=== PATIENT | female | born 1940 | race Caucasian/White ===

== ENCOUNTER → 2019-12-12 | Outpatient (CLI) | payer MEDICARE ==
[~2019-12-12] MED LIST: BENTYL 10 MG CA10 M1 PO; CALTRATE 600+D1 EAC1 PO; COUMADIN 4 MG TA4 M1 PO; IPRATROPIUM BRO30 ML NASAL; LACTULOSE10 GM/152 PO; LEVO-T25 MCG PO; LOMOTIL 2.5-0.01 TAB PO; METOPROLOL TART25 MG PO; MOBIC15 MG PO; NORVASC5 MG PO; NYSTATIN1 EA10 TOP; PANTOPRAZOLE SO40 MG PO; PEPCID COMPLET1 EACH PO; RECLAST 55 MG/100 M IV; TIZANIDINE HCL 22 M1 PO; TYLENOL EXTRA500 MG PO; VITAMIN D; ZESTRIL40 MG PO; ZOCOR 20 MG TAB20 M1 PO; ZYRTEC10 M4 PO
--- NOTE | ~2019-12-12 | PAINCON ---
[address] [address] PAIN MANAGEMENT CONSULTATION Name: ZAIRA MARQUES [facility] [id number] Admission: 12/12/19 Attend Phys: Oh Interiano MD Discharge: Date of : 36 Report #: [id number] THIS REPORT FOR: //name// cc: VIVIAN BARTH MD, HEATHER L. MD ~ THIS REPORT FOR: //name// CC: VIVIAN Interiano DATE OF SERVICE: 12/12/2019 CHIEF COMPLAINT: Neck pain. HISTORY: The patient is an 79-year-old female who has been having pain and discomfort in her neck. She has had problems, which have been quite problematic since 07/2019. She underwent a nerve block in the posterior portion of her neck. She thinks that it was a facet block in the back of her neck. She has got relatively good relief from the procedure. She was given a short to fill out. She states that for a number of days to week, she has had improvement in her neck. It has not gone back to the level that it was. She feels that she may have gotten lost to follow up by the pain clinics that provided the block. There were no complications from the procedure. She feels that maybe the clinic was a bit busy. She feels like she was lost to follow up. Because of this feeling of being lost to follow up she has elected to seek out treatment at another facility. She was taking Mobic, a nonsteroidal anti-inflammatory medication. Because of the change in her kidney function she has stopped taking that medication. After decreasing use of Mobic, she has noticed an increase in pain in the posterior portion of her neck. She notes her pain is worse with certain movements. She has some discomfort when she is getting out of the shower. She had a feeling that she might faint. This is associated with the pain and discomfort she is experiencing. She has used ice in the affected area. She had been seeing some years ago at [facility] for similar problems. She has had some problems with migraine headaches. ALLERGIES: SULFA, BACTRIM CAUSES HIVES; IODINE CONTRAST, LATEX, TAPE AND ADHESIVES, TINCTURE OF OPIUM, MORPHINE, DECLINES NARCOTICS FOR PAIN, FENTANYL PATCHES. CURRENT MEDICATIONS: Levothyroxine 0.025 mg, metoprolol 25 mg b.i.d., Mobic has been used, but is on hold, Caltrate D3 600 mg Monday, Monday and Monday, pantoprazole 40 mg, lisinopril 40 mg, simvastatin 20 mg, tizanidine 2 mg, warfarin 4 mg, IV Reclast yearly, p.r.n. medications; lactulose, nystatin powder, Zyrtec 10 mg, ipratropium bromide nasal solution, Tylenol 500 mg p.r.n., Pepcid Complete, Lomotil 2.5 mg, Bentyl 10 mg, and vitamin D [address] [place] [address] PAIN MANAGEMENT CONSULTATION Name: ZAIRA MARQUES Room: [facility]#: [id number] Admission: 12/12/19 Attend Phys: Oh Interiano MD Discharge: Date of : 36 Report #: [id number] PAST MEDICAL HISTORY: Scarlet fever, prediabetes, hypertension, thyroid disease, colon problems, joint disease/arthritis, osteoporosis, colitis with spasms, gastroparesis, irritable bowel, hyperparathyroidism, skin cancer to nose, questionable ulcers, atrial fibrillation in 2014, and sleep apnea, narrow angle glaucoma, blind in left eye. PAST SURGICAL HISTORY: Gallbladder disease in 1992, hemorrhoidectomy in 1961, right fractured hip in 2011, hysterectomy in 1977, T and A in 1943. 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 REVIEW OF SYSTEMS: Weight lost about 15 pounds, blurred, double vision, left eye blind, painful bowel movements, constipation, frequent urination, thyroid disease, prediabetes, muscle cramps, low back pain, easy bruising tendencies, and elevated INR. LABORATORY DATA: No new laboratory values are available at the time of our interview. PAIN CLINIC ASSESSMENT AND PQRS: 1. The patient is not being treated by a electronic video games servicer. She does have some osteoarthritic complaints involving her left hip. 2. Height 5 feet 0, weight 130 pounds, BMI is 25. 3. Vital Signs: Blood pressure 142/77, heart rate 75, respiratory rate 18, room air saturation 95%, temperature 99.1. 4. Pain intensity 08/30. 5. Fall risk. The patient has not fallen in the last 3 months. 6. Blood thinner. The patient is on Coumadin. 7. History of hypertension. 8. Opioids greater than 6 weeks. The patient is not receiving opioids on a regular basis. 9. Risk assessment tool, low for opioid use. 10. Functional assessment tool reviewed. 11. Recreational drug use. The patient denies. 12. Tobacco: The patient denies. 13. Alcohol. The patient denies frequent use of alcoholic beverages. PHYSICAL EXAMINATION: GENERAL: The patient is a well-developed, well-nourished white female. She appears her stated age. She is alert and oriented x 3. Her affect is appropriate. Speech is fluent. HEENT: Normocephalic, atraumatic. The patient is blind in the left eye. NEUROLOGICAL: Complains of pain in the occipital area and posterior portion of her neck at about C2-3, increased discomfort with flexion and extension left and the right lateral bending, left and right [place] [address] PAIN MANAGEMENT CONSULTATION Name: ZAIRA MARQUES Room: [facility]#: [id number] Admission: 12/12/19 Attend Phys: Oh Interiano MD Discharge: Date of : 36 Report #: [id number] muscle strength judged to be generally unremarkable. Muscle strength is 5-/5 for the major muscle groups in the upper extremity. The patient is without significant scoliosis, kyphosis, or lordosis. Lower extremity muscle strength judged 5-/5 for the major muscle groups in the lower extremity. IMPRESSION: Cervical spondylosis, left hip fracture, atrial fibrillation, and sacroiliitis. RECOMMENDATIONS: We discussed treatments with the patient. The patient states that she had a block in the neck area, which was beneficial. Procedure note indicates C2-C3 and C3-C4 areas were blocked. The patient noted an improvement in her pain for a number of days and still has improvement. She was concerned that her call was not answered regarding followup. Because of this lack of followup she felt treatment at another facility might be advantageous. We explained to the patient that given that she has had reasonably good success with the block we would recommend that she continue with her physician, Dr. Mcrae. She feels that she may have been a bit hasty in deciding to change positions. [facility]. We would like to thank you for letting us participate in her care. We hope she continues to improve. By: [id number]. Osorio Interiano MD /nt
== END ==
LOC: M.PC 11:05
DX: M47.812 Spondylosis without myelopathy or radiculopathy, cervical region (principal); I48.91 Unspecified atrial fibrillation; M46.1 Sacroiliitis, not elsewhere classified; S72.002D Fracture of unspecified part of neck of left femur, subsequent encounter for closed fracture with routine healing; X58.XXXD Exposure to other specified factors, subsequent encounter